=== PATIENT | male | born 1995 | race Caucasian/White ===

== ENCOUNTER 2017-12-07 12:46 | Day surgery (SDC) | payer OTHER ==
[2017-12-07] MEDS ORDERED: ONDANSETRON 4 MG INJ (15:38)
[2017-12-07] MEDS ORDERED: CEFAZOLIN 1 GM INJ (15:38)
[2017-12-07] MEDS ORDERED: KETOROLAC 30 MG INJ (15:38)
[2017-12-07] MEDS ORDERED: METOCLOPRAMIDE 10 MG INJ (15:38)
[2017-12-07] MEDS ORDERED: PROPOFOL 20 ML (15:38)
[2017-12-07] MEDS ORDERED: MIDAZOLAM 1 MG/ML 2 ML INJ (15:39)
[2017-12-07] MEDS ORDERED: FENTAnyl 50 MCG/ML VIAL (15:39)
[2017-12-07] MEDS ORDERED: LIDOCAINE 1% (MPF) 30 ML INJ (15:44)
[2017-12-07] MEDS ORDERED: BUPIVACAINE 0.5% (SDV) 30 ML INJ (15:44)
[2017-12-07] MEDS ORDERED: BACITRACIN/POLYMYXIN 28.35 GM OINT TOP (16:28)
[2017-12-07] MEDS: LIDOCAINE 1% (MPF) 30 ML INJ INJ (16:30)
[2017-12-07] MEDS: BUPIVACAINE 0.5% 30 ML VIAL INJ (16:30)
[2017-12-07] MEDS ORDERED: ONDANSETRON 4 MG INJ IV (16:30)
[2017-12-07] MEDS ORDERED: HYDROmorphONE (0.2 MG/ML) 10ML SYG IV ×2 (16:30)
[2017-12-07] MEDS ORDERED: DIPHENHYDRAMINE 50 MG INJ IV (16:30)
[2017-12-07] MEDS ORDERED: MEPERIDINE 25 MG INJ IV (16:30)
[2017-12-07] MEDS: SODIUM CHLORIDE 0.9% 1L IRRIG IRR (16:30)
[2017-12-07] MEDS ORDERED: OXYCODONE/ACETAMINOPHEN (5/325) TAB PO ×2 (16:30)
[2017-12-07] MEDS: HYDROmorphONE (0.2 MG/ML) 10ML SYG IV (17:28)
== END 2017-12-07 19:06 | disposition home or self-care (01) ==
LOC: SDS 12:46
DX: Z47.2 Encounter for removal of internal fixation device (principal); S52.501D Unspecified fracture of the lower end of right radius, subsequent encounter for closed fracture with routine healing; X58.XXXD Exposure to other specified factors, subsequent encounter
CPT/HCPCS: 20680; 73110-RT; 88300